=== PATIENT | female | born 1990 | race Caucasian/White ===

== ENCOUNTER 2019-02-28 11:00 | Emergency (ER) | payer OTHER, SELFPAY ==
[2019-02-28 11:03] VITALS: BP 105/70; PULSE 70; RESP 18; TEMP 36.7; O2SAT 99
[2019-02-28 11:37] LABS: Add Manual Diff / Slide Review NO; Basophils Absolute Auto 0 /uL (0-100); Basophils Percent Auto 0.4 % (0-2); Eosinophils Absolute Auto 0 /uL (0-450); Eosinophils Percent Auto 0.7 % (2-4); Hematocrit 38.2 % (36-46); Hemoglobin 13.5 g/dL (12.0-16.0); Lymphocytes Absolute Auto 700 /uL (1100-4500); Lymphocytes Percent Auto 12.9 % (25-40); Mean Corpuscular HGB Conc 35.4 % (30-36); Mean Corpuscular Hemoglobin 30.3 PG (26-34); Mean Corpuscular Volume 85.5 fL (80-100); Monocytes Absolute Auto 300 /uL (0-900); Monocytes Percent Auto 6.3 % (3-14); Neutrophils Absolute Auto 4200 /uL (1500-7000); Neutrophils Percent Auto 79.7 % (50-75); Platelet Count 175 X10^3/uL (150-400); Red Blood Cell Count 4.47 X10^6/uL (4.0-5.2); Red Cell Distribution Width 13.2 % (11.6-14.8); White Blood Cell Count 5.2 X10^3/uL (4.5-11.0)
--- NOTE | 2019-02-28 11:38 | ED_ITS ---
HPI - GI Bleed <LULY Smiley-BC - Last Filed: 02/28/19 17:58> General Chief complaint: GI Bleed Stated complaint: passing blood rectally Time Seen by Provider: 02/28/19 11:19 Source: patient Mode of arrival: Ambulatory Limitations: no limitations History of Present Illness HPI Narrative: The patient is a 28-year-old female who denies medical history and is a nonsmoker who presents with a chief complaint bloody bowel movements this morning. She states that last night she started having some abdominal cramping, and passed a bloody bowel movement this morning. She denies any fever s, complains of nausea, no vomiting. She states her last bowel movement that was normal was yesterday. She denies any chest pain or shortness of breath. She denies any previous abdominal surgeries. She denies any previous abdominal diagnosis such as Crohn's or IBS. She has not taken anything to feel better. She denies any possibility of . She denies any dysuria urgency or frequency. Related Data Previous Rx's Medication Instructions Recorded ciprofloxacin HCl [Cipro] 500 mg PO Q12H #20 tab 02/28/19 metronidazole 500 mg PO TID #30 tab 02/28/19 ondansetron 4 mg PO Q6H PRN #20 tab 02/28/19 Allergies Allergy/AdvReac Type Severity Reaction Status Date / Time No Known Drug Allergies Allergy Verified 02/28/19 11:05 Review of Systems <LULY Smiley-BC - Last Filed: 02/28/19 17:58> Review of Systems Narrative: GENERAL: Denies chills, fatigue, malaise, fever, sweats. HEENT: Denies sinus pain, ear pain, sore throat, difficulty swallowing, dizziness. RESPIRATORY: Denies dyspnea, cough, wheezing, hemoptysis, sputum. CARDIOVASCULAR: Denies chest pain, palpitations, orthopnea, edema, GASTROINTESTINAL: See HPI : Denies dysuria, frequency, incontinence, hematuria, urinary retention. MUSCULOSKELETAL: denies weakness, joint pain, or bony pain SKIN: Denies rash, skin lesions, or other NEUROLOGIC: Denies weakness, headache, numbness, change in speech, confusion, seizures, incoordination. PSYCHIATRIC: No concerning psychosocial issues. 12 point review of systems is negative except for those stated above Patient History <RONIT Smiley - Last Filed: 02/28/19 17:58> Social History Smoking Status: Never smoker Smoking Status: Never smoker alcohol intake frequency: holidays/special occasions only Substance Use Type: does not use Exam <RONIT Smiley - Last Filed: 02/28/19 17:58> Narrative Exam Narrative: GENERAL: This is a well-nourished, well-developed patient, in no acute distress HEAD: Atraumatic. Normocephalic. No temporal or scalp tenderness. EYES: Pupils equal round and reactive. Extraocular motions intact. No scleral icterus. No injection or drainage. ENT: Nose without bleeding, purulent drainage or septal hematoma. Throat without erythema, tonsillar hypertrophy or exudate. Uvula midline. Airway patent. NECK: Trachea midline. No JVD or lymphadenopathy. Supple, nontender, no meningeal signs. CARDIOVASCULAR: Regular rate and rhythm without murmurs, gallops, or rubs. RESPIRATORY: Clear to auscultation. Breath sounds equal bilaterally. No wheezes, rales, or rhonchi. GASTROINTESTINAL: Abdomen soft, diffusely tender, nondistended. No hepato- splenomegaly, or palpable masses. No guarding. Active bowel sounds all 4 quadrants EXTREMITIES: No clubbing, cyanosis, or edema. No joint tenderness, effusion, or edema noted. BACK: Nontender without deformity or crepitance. No flank tenderness. NEURO: AOx3. SKIN: No rash or erythema on visible skin Initial Vital Signs Initial Vital Signs: Vital Signs Temperature 98.0 F 02/28/19 11:03 Pulse Rate 70 02/28/19 11:03 Respiratory Rate 18 02/28/19 11:03 Blood Pressure 105/70 02/28/19 11:03 Pulse Oximetry 99 02/28/19 11:03 <Korina Kamara MD - Last Filed: 02/28/19 18:31> Initial Vital Signs Initial Vital Signs: Vital Signs Temperature 98.0 F 02/28/19 11:03 Pulse Rate 70 02/28/19 11:03 Respiratory Rate 18 02/28/19 11:03 Blood Pressure 105/70 02/28/19 11:03 Pulse Oximetry 99 02/28/19 11:03 Course <LULY Smiley-BC - Last Filed: 02/28/19 17:58> Orders Ordered: ED Orders 02/28/19 11:26 Complete Blood Count AUTO DIFF Stat Comprehensive Metabolic Panel Stat Lactate (Lactic Acid) Stat Partial Thromboplastin Time Stat Prothrombin Time INR Stat 02/28/19 12:04 Type and Screen Stat 02/28/19 13:51 CT abdomen pelvis w con Stat Discontinued Medications Sodium Chloride (Normal Saline 0.9%) 500 mls @ 1,000 mls/hr IV BOLUS ONE Stop: 02/28/19 11:59 Last Infusion: 02/28/19 12:35 Dose: 0 mls/hr Documented by: Admin: 02/28/19 11:45 Dose: 1,000 mls/hr Documented by: RENAN Ondansetron HCl (Zofran) 4 mg IV NOW ONE Stop: 02/28/19 11:31 Last Admin: 02/28/19 11:45 Dose: 4 mg Documented by: SARANYA Vital Signs Vital signs: Vital Signs - 8 hr 02/28/19 11:03 02/28/19 12:30 02/28/19 13:30 Temperature 98.0 F Pulse Rate 70 76 66 Respiratory Rate 18 16 16 Blood Pressure 105/70 Blood Pressure [Left Arm] 109/68 110/64 Pulse Oximetry 99 100 100 02/28/19 15:00 Temperature Pulse Rate 60 Respiratory Rate 16 Blood Pressure Blood Pressure [Left Arm] 112/70 Pulse Oximetry 100 <Korina Kamara MD - Last Filed: 02/28/19 18:31> Orders Ordered: ED Orders 02/28/19 11:26 Complete Blood Count AUTO DIFF Stat Comprehensive Metabolic Panel Stat Lactate (Lactic Acid) Stat Partial Thromboplastin Time Stat Prothrombin Time INR Stat 02/28/19 12:04 Type and Screen Stat 02/28/19 13:51 CT abdomen pelvis w con Stat Discontinued Medications Sodium Chloride (Normal Saline 0.9%) 500 mls @ 1,000 mls/hr IV BOLUS ONE Stop: 02/28/19 11:59 Last Infusion: 02/28/19 12:35 Dose: 0 mls/hr Documented by: Admin: 02/28/19 11:45 Dose: 1,000 mls/hr Documented by: RENAN Ondansetron HCl (Zofran) 4 mg IV NOW ONE Stop: 02/28/19 11:31 Last Admin: 02/28/19 11:45 Dose: 4 mg Documented by: SARANYA Vital Signs Vital signs: Vital Signs - 8 hr 02/28/19 11:03 02/28/19 12:30 02/28/19 13:30 Temperature 98.0 F Pulse Rate 70 76 66 Respiratory Rate 18 16 16 Blood Pressure 105/70 Blood Pressure [Left Arm] 109/68 110/64 Pulse Oximetry 99 100 100 02/28/19 15:00 Temperature Pulse Rate 60 Respiratory Rate 16 Blood Pressure Blood Pressure [Left Arm] 112/70 Pulse Oximetry 100 MDM - GI Bleed <GRADY SmileyBC - Last Filed: 02/28/19 17:58> Lab Data Result diagrams: 02/28/19 11:26 02/28/19 11:26 Labs: Lab Results 02/28/19 02/28/19 02/28/19 Range/Units 11:26 11:26 11:26 WBC 5.2 (4.5-11.0) X10^3/uL RBC 4.47 (4.0-5.2) X10^6/uL Hgb 13.5 (12.0-16.0) g/dL Hct 38.2 (36-46) % MCV 85.5 (80-100) fL MCH 30.3 (26-34) PG MCHC 35.4 (30-36) % RDW 13.2 (11.6-14.8) % Plt Count 175 (150-400) X10^3/uL Neut % (Auto) 79.7 H (50-75) % Lymph % (Auto) 12.9 L (25-40) % [place] % (Auto) 6.3 (3-14) % Eos % (Auto) 0.7 L (2-4) % Baso % (Auto) 0.4 (0-2) % Neut # (Auto) 4200 (3005-0803) /uL Lymph # (Auto) 700 L (6025-8788) /uL [place] # (Auto) 300 (0-900) /uL Eos # (Auto) 0 (0-450) /uL Baso # (Auto) 0 (0-100) /uL PT 12.3 (10.1-12.7) SECONDS INR 1.1 (0.9-1.3) APTT 30 (26.4-36.2) SECONDS Sodium 136 L (137-145) mmol/L Potassium 3.8 (3.4-5.1) mmol/L Chloride 101 (98-107) mmol/L Carbon Dioxide 25 (22-32) mmol/L BUN 10 (7-17) mg/dL Creatinine 0.60 (0.52-1.04) mg/dL Estimated GFR > 60.0 (>60) mL/min BUN/Creatinine Ratio 16.7 (6-22) Glucose 91 (70-100) mg/dL Lactate (0.7-2.1) mmol/L Calcium 9.1 (8.4-10.2) mg/dL Total Bilirubin 1.7 H (0.2-1.3) mg/dL AST 23 (14-36) IU/L ALT 18 (<35) IU/L Alkaline Phosphatase 47 (38-126) U/L Total Protein 7.0 (6.3-8.2) g/dL Albumin 4.6 (3.5-5.0) g/dL Globulin 2.4 (1.7-4.1) g/dL Albumin/Globulin Ratio 1.9 (1.0-2.8) Blood Type Antibody Screen 02/28/19 02/28/19 Range/Units 11:26 12:04 WBC (4.5-11.0) X10^3/uL RBC (4.0-5.2) X10^6/uL Hgb (12.0-16.0) g/dL Hct (36-46) % MCV (80-100) fL MCH (26-34) PG MCHC (30-36) % RDW (11.6-14.8) % Plt Count (150-400) X10^3/uL Neut % (Auto) (50-75) % Lymph % (Auto) (25-40) % [place] % (Auto) (3-14) % Eos % (Auto) (2-4) % Baso % (Auto) (0-2) % Neut # (Auto) (6537-3715) /uL Lymph # (Auto) (2146-4704) /uL [place] # (Auto) (0-900) /uL Eos # (Auto) (0-450) /uL Baso # (Auto) (0-100) /uL PT (10.1-12.7) SECONDS INR (0.9-1.3) APTT (26.4-36.2) SECONDS Sodium (137-145) mmol/L Potassium (3.4-5.1) mmol/L Chloride (98-107) mmol/L Carbon Dioxide (22-32) mmol/L BUN (7-17) mg/dL Creatinine (0.52-1.04) mg/dL Estimated GFR (>60) mL/min BUN/Creatinine Ratio (6-22) Glucose (70-100) mg/dL Lactate 0.7 (0.7-2.1) mmol/L Calcium (8.4-10.2) mg/dL Total Bilirubin (0.2-1.3) mg/dL AST (14-36) IU/L ALT (<35) IU/L Alkaline Phosphatase (38-126) U/L Total Protein (6.3-8.2) g/dL Albumin (3.5-5.0) g/dL Globulin (1.7-4.1) g/dL Albumin/Globulin Ratio (1.0-2.8) Blood Type O Positive Antibody Screen Negative Point of Care Testing Test Results Negative Urine Dip Bedside Urine Glucose Negative Bedside Urine Bilirubin - Negative Bedside Urine Ketone - Negative Urine Specific Line [place] 1.015 Bedside Urine Occult Blood - Negative Bedside Urine pH 6.0 Bedside Urine Protein - Negative Bedside Urine Urobilinogen - Negative Bedside Urine Nitrite - Negative Bedside Urine Leukocytes - Negative Esterase Imaging Data CT scan - abdomen/pelvis: Radiologist's Impression: CT Scan Report Signed Patient: Peyton Bhandari GMR#: [id number] : 1990Acct:[id number] Age/Sex: 28 / FDate of Service: 02/28/19 Loc: ED Accession Number: [id number] Procedure: CT abdomen pelvis w con Ordering Provider: Sharri Peguero [employer]- PROCEDURE: CT ABDOMEN PELVIS W CON INDICATIONS: abd pain, bloody stool TECHNIQUE: After the administration of intravenous contrast, 5 mm thick sections acquired from the diaphragm to the symphysis. 5 mm coronal and sagittal reformats were acquired. For radiation dose reduction, the following was used: automated exposure control, adjustment of mA and/or kV according to patient size. COMPARISON: None. FINDINGS: Image quality: Excellent. ABDOMEN: Lung bases: Lung bases are clear. Heart size is normal. Solid organs: Evaluation of the liver demonstrates no focal hepatic lesions. The gallbladder appears within normal limits without calcified gallstones. Biliary system is non-dilated. Pancreas enhances normally. No peripancreatic fat stranding or fluid collections. No pancreatic duct dilatation. The spleen is normal in size. No adrenal nodules. Kidneys demonstrate no hydronephrosis. Peritoneum and bowel: Small bowel loops demonstrate normal wall thickness and caliber. The appendix is normal in appearance. There is segmental wall thickening of the colon extending from the hepatic flexure to the transverse, descending, and sigmoid colon with associated mucosal enhancement and mild pericolonic fat stranding consistent with an infectious or inflammatory colitis. A small amount of free fluid is demonstrated in the pelvis which appears within physiologic limits. No free air. Nodes and vessels: No retroperitoneal or mesenteric adenopathy by size criteria. Aorta and inferior vena cava are normal in size. Miscellaneous: No ventral hernias. PELVIS: Genitourinary: Bladder wall thickness is normal. The uterus is enlarged and hyperemic in appearance with a small amount of endometrial fluid compatible physiologic changes. Ovaries appear within normal size limits for age. Miscellaneous: No inguinal hernias or adenopathy. Bones: No suspicious bony lesions. No vertebral body compression fractures. IMPRESSION: 1. Segmental colitis of the colon extending from the hepatic flexure to the rectosigmoid colon, likely infectious or inflammatory in etiology. Dictated by: New Paulino M.D. on 02/28/2019 at 14:09 Approved by: New Paulino M.D. on 02/28/2019 at 14:12 [facility] Narrative Medical decision making narrative: The patient is a 28-year-old female who presents with a chief complaint of bloody stool as well as abdominal cramping. She is hemodynamically stable, normotensive and without fever. She has no leukocytosis which is reassuring. She is not anemic. Her CT shows colitis, which given her bloody stool we elected to treat with Flagyl and Cipro. I discussed that Cipro can lead to tendon issues. Encourage PCP follow-up in the next few days. Discussed the fact that she might need further care, evaluation, specialty referral etcetera. Discussed at length coming back to the emergency department for any acute concerns such as passing out, severe bleeding, inability keep down fluids etc.. Patient has no questions or concerns and states understanding of return precautions as well as follow-up care. <Korina Kamara MD - Last Filed: 02/28/19 18:31> Lab Data Labs: Lab Results 02/28/19 02/28/19 02/28/19 Range/Units 11:26 11:26 11:26 WBC 5.2 (4.5-11.0) X10^3/uL RBC 4.47 (4.0-5.2) X10^6/uL Hgb 13.5 (12.0-16.0) g/dL Hct 38.2 (36-46) % MCV 85.5 (80-100) fL MCH 30.3 (26-34) PG MCHC 35.4 (30-36) % RDW 13.2 (11.6-14.8) % Plt Count 175 (150-400) X10^3/uL Neut % (Auto) 79.7 H (50-75) % Lymph % (Auto) 12.9 L (25-40) % [place] % (Auto) 6.3 (3-14) % Eos % (Auto) 0.7 L (2-4) % Baso % (Auto) 0.4 (0-2) % Neut # (Auto) 4200 (4094-9614) /uL Lymph # (Auto) 700 L (8236-8625) /uL [place] # (Auto) 300 (0-900) /uL Eos # (Auto) 0 (0-450) /uL Baso # (Auto) 0 (0-100) /uL PT 12.3 (10.1-12.7) SECONDS INR 1.1 (0.9-1.3) APTT 30 (26.4-36.2) SECONDS Sodium 136 L (137-145) mmol/L Potassium 3.8 (3.4-5.1) mmol/L Chloride 101 (98-107) mmol/L Carbon Dioxide 25 (22-32) mmol/L BUN 10 (7-17) mg/dL Creatinine 0.60 (0.52-1.04) mg/dL Estimated GFR > 60.0 (>60) mL/min BUN/Creatinine Ratio 16.7 (6-22) Glucose 91 (70-100) mg/dL Lactate (0.7-2.1) mmol/L Calcium 9.1 (8.4-10.2) mg/dL Total Bilirubin 1.7 H (0.2-1.3) mg/dL AST 23 (14-36) IU/L ALT 18 (<35) IU/L Alkaline Phosphatase 47 (38-126) U/L Total Protein 7.0 (6.3-8.2) g/dL Albumin 4.6 (3.5-5.0) g/dL Globulin 2.4 (1.7-4.1) g/dL Albumin/Globulin Ratio 1.9 (1.0-2.8) Blood Type Antibody Screen 02/28/19 02/28/19 Range/Units 11:26 12:04 WBC (4.5-11.0) X10^3/uL RBC (4.0-5.2) X10^6/uL Hgb (12.0-16.0) g/dL Hct (36-46) % MCV (80-100) fL MCH (26-34) PG MCHC (30-36) % RDW (11.6-14.8) % Plt Count (150-400) X10^3/uL Neut % (Auto) (50-75) % Lymph % (Auto) (25-40) % [place] % (Auto) (3-14) % Eos % (Auto) (2-4) % Baso % (Auto) (0-2) % Neut # (Auto) (0270-3513) /uL Lymph # (Auto) (9887-7714) /uL [place] # (Auto) (0-900) /uL Eos # (Auto) (0-450) /uL Baso # (Auto) (0-100) /uL PT (10.1-12.7) SECONDS INR (0.9-1.3) APTT (26.4-36.2) SECONDS Sodium (137-145) mmol/L Potassium (3.4-5.1) mmol/L Chloride (98-107) mmol/L Carbon Dioxide (22-32) mmol/L BUN (7-17) mg/dL Creatinine (0.52-1.04) mg/dL Estimated GFR (>60) mL/min BUN/Creatinine Ratio (6-22) Glucose (70-100) mg/dL Lactate 0.7 (0.7-2.1) mmol/L Calcium (8.4-10.2) mg/dL Total Bilirubin (0.2-1.3) mg/dL AST (14-36) IU/L ALT (<35) IU/L Alkaline Phosphatase (38-126) U/L Total Protein (6.3-8.2) g/dL Albumin (3.5-5.0) g/dL Globulin (1.7-4.1) g/dL Albumin/Globulin Ratio (1.0-2.8) Blood Type O Positive Antibody Screen Negative Point of Care Testing Test Results Negative Urine Dip Bedside Urine Glucose Negative Bedside Urine Bilirubin - Negative Bedside Urine Ketone - Negative Urine Specific Line [place] 1.015 Bedside Urine Occult Blood - Negative Bedside Urine pH 6.0 Bedside Urine Protein - Negative Bedside Urine Urobilinogen - Negative Bedside Urine Nitrite - Negative Bedside Urine Leukocytes - Negative Esterase Discharge Plan Departure Patient Disposition: Home Clinical Impression: Colitis Discharge Date/Time: 02/28/19 15:24 Instructions: DI for Colitis Activity Restrictions/Additional Instructions: Today your lab work came back well. However your imaging shows concern for colitis. This is infection or inflammation in your colon. We have elected to treat with antibiotics. I sent 3 prescriptions to [facility] in [place]. This includes to antibiotics and one nausea medication. I suggest a light diet, push fluids. Slowly advance your diet as tolerated. Please follow-up with primary care provider in the next few days. Please come back to emergency department for any acute such as severe bleeding, passing out, chest pain shortness of breath etcetera Prescriptions: New ondansetron 4 mg tablet,disintegrating 4 mg PO Q6H PRN (Reason: nausea and vomiting) Qty: 20 RF: 0 ciprofloxacin HCl [Cipro] 500 mg tablet 500 mg PO Q12H Qty: 20 RF: 0 metronidazole 500 mg tablet 500 mg PO TID Qty: 30 RF: 0 Referrals: [facility] [Provider Group]
[2019-02-28 11:45] LABS: INR 1.1 (0.9-1.3); Prothrombin Time 12.3 SECONDS (10.1-12.7)
[2019-02-28] MEDS: SODIUM CHLORIDE 0.9% 500 ML 1000 ML IV (11:45)
[2019-02-28] MEDS: ONDANSETRON 4 MG/2 ML INJ IV (11:45)
[2019-02-28 11:48] LABS: PTT Partial Thromboplastin Tim 30 SECONDS (26.4-36.2)
[2019-02-28 11:52] LABS: Alanine Aminotransferase 18 IU/L (<35); Albumin 4.6 g/dL (3.5-5.0); Albumin Globulin Ratio 1.9 (1.0-2.8); Alkaline Phosphatase 47 U/L (38-126); Aspartate Aminotransferase 23 IU/L (14-36); BUN Creatinine Ratio 16.7 (6-22); Bilirubin Total 1.7 mg/dL (0.2-1.3); Blood Urea Nitrogen 10 mg/dL (7-17); Calcium 9.1 mg/dL (8.4-10.2); Carbon Dioxide 25 mmol/L (22-32); Chloride 101 mmol/L (98-107); Estimated Glomerular Filt Rate > 60.0 mL/min (>60); Globulin 2.4 g/dL (1.7-4.1); Glucose 91 mg/dL (70-100); HEMOLYSIS < 15 (0-50); Potassium 3.8 mmol/L (3.4-5.1); Sodium 136 mmol/L (137-145)
[2019-02-28 11:53] LABS: Lactate (Lactic Acid) 0.7 mmol/L (0.7-2.1)
[2019-02-28 12:30] VITALS: BP 109/68; PULSE 76; RESP 16; O2SAT 100
[2019-02-28 13:30] VITALS: BP 110/64; PULSE 66; RESP 16; O2SAT 100
--- NOTE | 2019-02-28 13:51 | DI.CT.S_ITS ---
PROCEDURE: CT ABDOMEN PELVIS W CON INDICATIONS: abd pain, bloody stool TECHNIQUE: After the administration of intravenous contrast, 5 mm thick sections acquired from the diaphragm to the symphysis. 5 mm coronal and sagittal reformats were acquired. For radiation dose reduction, the following was used: automated exposure control, adjustment of mA and/or kV according to patient size. COMPARISON: None. FINDINGS: Image quality: Excellent. ABDOMEN: Lung bases: Lung bases are clear. Heart size is normal. Solid organs: Evaluation of the liver demonstrates no focal hepatic lesions. The gallbladder appears within normal limits without calcified gallstones. Biliary system is non-dilated. Pancreas enhances normally. No peripancreatic fat stranding or fluid collections. No pancreatic duct dilatation. The spleen is normal in size. No adrenal nodules. Kidneys demonstrate no hydronephrosis. Peritoneum and bowel: Small bowel loops demonstrate normal wall thickness and caliber. The appendix is normal in appearance. There is segmental wall thickening of the colon extending from the hepatic flexure to the transverse, descending, and sigmoid colon with associated mucosal enhancement and mild pericolonic fat stranding consistent with an infectious or inflammatory colitis. A small amount of free fluid is demonstrated in the pelvis which appears within physiologic limits. No free air. Nodes and vessels: No retroperitoneal or mesenteric adenopathy by size criteria. Aorta and inferior vena cava are normal in size. Miscellaneous: No ventral hernias. PELVIS: Genitourinary: Bladder wall thickness is normal. The uterus is enlarged and hyperemic in appearance with a small amount of endometrial fluid compatible physiologic changes. Ovaries appear within normal size limits for age. Miscellaneous: No inguinal hernias or adenopathy. Bones: No suspicious bony lesions. No vertebral body compression fractures. IMPRESSION: 1. Segmental colitis of the colon extending from the hepatic flexure to the rectosigmoid colon, likely infectious or inflammatory in etiology. Dictated by: New Paulino M.D. on 02/28/2019 at 14:09 Approved by: New Paulino M.D. on 02/28/2019 at 14:12
[2019-02-28 15:00] VITALS: BP 112/70; PULSE 60; RESP 16; O2SAT 100
== END 2019-02-28 15:24 | disposition home or self-care (01) ==
PROVIDERS: Emergency Medicine; Emergency Provider Nurse Practitioner Family
DX: A09 Infectious gastroenteritis and colitis, unspecified (principal); K92.1 Melena
CPT/HCPCS: 36415; 74177; 80053; 81003; 81025; 83605; 85025; 85610; 85730; 86850; 86900; 86901; 96361; 96374; 99284; J2405; Q9967